=== PATIENT | female | born 1995 | race African-American/Black ===

== ENCOUNTER 2019-03-23 05:03 | Inpatient (IN) ==
[2019-03-23] MEDS ORDERED: BUTORPHANOL 2 MG/ML VIAL IV PRN (05:15)
[2019-03-23] MEDS ORDERED: ONDANSETRON 4 MG/2 ML VIAL IV PRN (05:15)
[2019-03-23] MEDS ORDERED: OXYTOCIN/LR 20 UNIT/1,000 ML BAG IV SCH (05:30)
[2019-03-23 05:43] LABS: Basophils # 0.1 10*3/uL (0.0-0.2); Basophils % 0.5 % (0.0-0.8); Immature Granulocytes % 0.9 %
[2019-03-23] MEDS: LACTATED RINGERS 1,000 ML IV SCH ×2 (05:45→09:16)
[2019-03-23 05:49] LABS: Eosinophils # 0.3 10*3/uL (0.0-0.87); Eosinophils % 2.6 % (0.00-10.9); Hematocrit 34.7 VOL% (35.7-47.0); Hemoglobin 10.7 GM/DL (12.0-16.0); Immature Granulocytes Absolute 0.11 #; Lymphocytes # 2.7 10*3/uL (1.4-4.0); Mean Corpuscular HGB Conc 30.8 GM/DL (32-36); Mean Platelet Volume 8.7 FL (9.6-12.0); Monocytes % 9.3 % (1.7-12.7); Neutrophils % 65.7 % (38.7-73.9); Platelet Count 364 T/CUMM (130-400); Red Blood Count 3.99 MC/CUMM (3.8-5.5); Red Cell Distribution Width 15.7 % (9.3-17.3); White Blood Count 12.9 T/CUMM (4-12)
[2019-03-23 05:53] LABS: INR 0.9; PT Patient Result 9.8 SECS; Partial Thromboplastin Time 26.2 SECS (0-40)
[2019-03-23 06:02] LABS: Albumin 2.8 G/DL (3.4-5.0); Bilirubin,Total 0.7 MG/DL (0.2-1.0); Osmolality,Calculated 272.7 MOS/KG (273-304); Total Protein 7.2 G/DL (6.4-8.3); Uric Acid 6.5 MG/DL (2.6-6.0)
[2019-03-23 06:09] LABS: Anisocytosis 1+; Platelet Estimate Adequate
[2019-03-23] MEDS ORDERED: hydrOXYzine HCL 25 MG/1 ML VIAL IM PRN (07:54)
[2019-03-23] MEDS ORDERED: CITRIC ACID/SODIUM CITRATE 30 ML UDCUP PO ONE (07:54)
[2019-03-23] MEDS ORDERED: diphenhydrAMINE 50 MG/1 ML VIAL IV PRN ×2 (07:54)
[2019-03-23] MEDS ORDERED: FAMOTIDINE 20 MG/2 ML VIAL IV ONE (07:54)
[2019-03-23] MEDS ORDERED: ePHEDrine 50 MG/ML AMP IV PRN (07:54)
[2019-03-23] MEDS ORDERED: NALOXONE 0.4 MG/ML VIAL IV PRN (07:54)
[2019-03-23] MEDS ORDERED: LACTATED RINGERS 1,000 ML IV ONE (07:54)
[2019-03-23] MEDS ORDERED: ONDANSETRON 4 MG/2 ML VIAL IV ONE (07:54)
[2019-03-23] MEDS ORDERED: PROMETHAZINE 25 MG/1 ML VIAL IM ONE (07:54)
[2019-03-23] MEDS ORDERED: fentaNYL 2 MCG/ROPIV 0.2% EPID 100 ML EPIDURAL SCH (08:00)
[2019-03-23 11:58] LABS: Apearance,Urine CLEAR (Clear); Bilirubin,Urine Negative (Negative); Blood, Urine Small mg/dL (Negative); Glucose,Urine (UA) Negative (Negative); Ketones,Urine Negative (Negative); Mucus,Urine Moderate /LPF (Occasional); Nitrite,Urine Negative (Negative); Protein,Urine Negative; RBC,Urine 3 /HPF (0-4); Squamous Epithelial Cell,Urine Occasional /HPF (0-10); Urine Color Yellow (Yellow); Urine Specific Gravity 1.014 (1.001-1.035); Urine Urobilinogen < 2.0 EU/DL (0.2-1.0); WBC,Urine <1 /HPF (0-6)
[2019-03-23] MEDS ORDERED: miSOPROStol 200 MCG TABLET ONE (13:24)
[2019-03-23] MEDS ORDERED: LIDOCAINE 1% 50 ML VIAL ONE (13:24)
[2019-03-23] MEDS ORDERED: CARBOPROST TROMETHAMINE 250 MCG/ML AMP IM ONE (13:24)
[2019-03-23] MEDS ORDERED: RHO(D) IMMUNE GLOBULIN 300 MCG SYRINGE IM ONE (14:33)
[2019-03-23] MEDS ORDERED: DIPH/TET/ACEL PERT BOOSTER VACCINE 0.5 ML VIAL IM ONE (14:33)
[2019-03-23] MEDS ORDERED: LANOLIN 50% CREAM 0.3 OZ TUBE TOP PRN (14:33)
[2019-03-23] MEDS ORDERED: MEASLES/MUMPS/RUBELLA VACCINE 0.5 ML VIAL SUBCUT ONE (14:33)
[2019-03-23] MEDS ORDERED: BENZOCAINE 20%/MENTHOL 0.5% SPRAY 56 GM CAN TOP PRN (14:33)
[2019-03-23] MEDS ORDERED: HYDROCORTISONE 2.5% RECTAL CREAM 30 GM TUBE TOP PRN (14:33)
[2019-03-23] MEDS ORDERED: ACETAMINOPHEN 325 MG TABLET PO PRN (14:33)
[2019-03-23] MEDS ORDERED: OXYTOCIN/LR 20 UNIT/1,000 ML BAG IV ONE (14:33)
[2019-03-23] MEDS ORDERED: WITCH HAZEL PADS 100/JAR TOP PRN (14:33)
[2019-03-23] MEDS ORDERED: BISACODYL 10 MG SUPP RECTAL PRN (14:33)
[2019-03-23] MEDS ORDERED: oxyCODONE/ACETAMINOPHEN 5-325 MG TABLET PO PRN (14:33)
[2019-03-23] MEDS: IBUPROFEN 800 MG TABLET PO PRN (17:09)
[2019-03-23] MEDS: FERROUS SULFATE 325 MG TABLET PO SCH ×2 (19:05→20:53)
[2019-03-23] MEDS: DOCUSATE SODIUM 100 MG CAPSULE PO SCH (20:53)
[2019-03-23] MEDS: LABETALOL 200 MG TABLET PO SCH (20:53)
[2019-03-24 05:12] LABS: Basophils % 0.3 % (0.0-0.8); Eosinophils # 0.2 10*3/uL (0.0-0.87); Eosinophils % 1.6 % (0.00-10.9); Hematocrit 29.6 VOL% (35.7-47.0); Hemoglobin 9.1 GM/DL (12.0-16.0); Immature Granulocytes % 0.6 %; Immature Granulocytes Absolute 0.07 #; Lymphocytes % 17.4 % (21.3-54.2); Mean Corpuscular HGB Conc 30.7 GM/DL (32-36); Mean Platelet Volume 9.1 FL (9.6-12.0); Monocytes % 10.1 % (1.7-12.7); Platelet Count 292 T/CUMM (130-400); Red Blood Count 3.44 MC/CUMM (3.8-5.5); Red Cell Distribution Width 15.7 % (9.3-17.3); White Blood Count 11.7 T/CUMM (4-12)
[2019-03-24] MEDS ORDERED: MULTIVITAMIN (PRENATAL) TABLET PO SCH (09:00)
[2019-03-24] MEDS: DOCUSATE SODIUM 100 MG CAPSULE PO SCH ×2 (09:09→20:29)
[2019-03-24] MEDS: IBUPROFEN 800 MG TABLET PO PRN (09:09)
[2019-03-24] MEDS: FERROUS SULFATE 325 MG TABLET PO SCH ×3 (09:09→20:29)
[2019-03-24] MEDS: LABETALOL 200 MG TABLET PO SCH ×2 (09:09→20:29)
[2019-03-24] MEDS: MULTIVITAMIN (PRENATAL) TABLET PO SCH (09:09)
[2019-03-24] MEDS: oxyCODONE/ACETAMINOPHEN 5-325 MG TABLET PO PRN (17:30)
[2019-03-25 07:29] VITALS: BP 116/71
[2019-03-25] MEDS: FERROUS SULFATE 325 MG TABLET PO SCH (08:24)
[2019-03-25] MEDS: MULTIVITAMIN (PRENATAL) TABLET PO SCH (08:24)
[2019-03-25] MEDS: DOCUSATE SODIUM 100 MG CAPSULE PO SCH (08:24)
[2019-03-25] MEDS: LABETALOL 200 MG TABLET PO SCH (08:24)
[2019-03-25] MEDS: oxyCODONE/ACETAMINOPHEN 5-325 MG TABLET PO PRN (08:29)
[2019-03-25] MEDS ORDERED: MEASLES/MUMPS/RUBELLA VACCINE 0.5 ML VIAL SUBCUT ONE (11:48)
== END 2019-03-25 14:10 | disposition home or self-care (01) | DRG 560 ==
LOC: N.LDOUT 05:03 → N.LD 05:06 → N.OB 18:15
PROVIDERS: ADMIT Obstetrics & Gynecology; ATTEND Obstetrics & Gynecology

== ENCOUNTER 2022-06-26 00:09 | Inpatient (IN) ==
[2022-06-26] MEDS ORDERED: ACETAMINOPHEN 500 MG TABLET PO PRN (00:44)
[2022-06-26] MEDS ORDERED: BUTORPHANOL 1 MG/ML VIAL IV PRN (00:44)
[2022-06-26] MEDS ORDERED: LACTATED RINGERS 250 ML IV ONE (00:44)
[2022-06-26] MEDS ORDERED: LACTATED RINGERS 500 ML IV PRN (00:44)
[2022-06-26] MEDS ORDERED: OXYTOCIN/LR 20 UNIT/1,000 ML BAG IV ONE ×3 (00:44→13:08)
[2022-06-26] MEDS ORDERED: CARBOPROST TROMETHAMINE 250 MCG/ML AMP IM PRN (00:44)
[2022-06-26] MEDS ORDERED: TRANEXAMIC ACID 1,000 MG in SODIUM CHLORIDE 0.9% 100 ML IV PRN (00:44)
[2022-06-26] MEDS ORDERED: MEPERIDINE 50 MG/1 ML VIAL IV PRN ×2 (00:44→00:54)
[2022-06-26] MEDS ORDERED: METHYLERGONOVINE 0.2 MG/1 ML AMP IM PRN (00:44)
[2022-06-26] MEDS ORDERED: ONDANSETRON 4 MG/2 ML VIAL IV PRN (00:44)
[2022-06-26] MEDS ORDERED: miSOPROStoL 200 MCG TABLET RECTAL PRN (00:44)
[2022-06-26] MEDS ORDERED: BUTORPHANOL 2 MG/ML VIAL IV PRN (00:44)
[2022-06-26] MEDS ORDERED: LACTATED RINGERS 1,000 ML IV SCH ×3 (01:00→08:30)
[2022-06-26 01:53] LABS: Basophils # 0.1 10*3/uL (0.0-0.2); Basophils % 0.4 % (0.0-0.8); Eosinophils # 0.2 10*3/uL (0.0-0.87); Eosinophils % 2.1 % (0.00-10.9); Hematocrit 30.3 VOL% (35.7-47.0); Hemoglobin 9.3 GM/DL (12.0-16.0); Immature Granulocytes % 1.2 %; Immature Granulocytes Absolute 0.14 #; Lymphocytes # 1.8 10*3/uL (1.4-4.0); Lymphocytes % 15.7 % (21.3-54.2); Mean Corpuscular HGB Conc 30.7 GM/DL (32-36); Mean Corpuscular Volume 84.2 FL (87-102); Mean Platelet Volume 9.3 FL (9.6-12.0); Monocytes # 1.1 10*3/uL (0.11-0.8); Monocytes % 9.4 % (1.7-12.7); NRBC # 0.02 10*3/uL; Neutrophils % 71.2 % (38.7-73.9); Platelet Count 325 T/CUMM (130-400); White Blood Count 11.6 T/CUMM (4-12)
[2022-06-26 03:25] LABS: Alanine Aminotransferase 10 U/L (13-56); Albumin 2.5 G/DL (3.4-5.0); Alkaline Phosphatase 123 U/L (45-117); Aspartate Amino Transferase 8 U/L (0-37); Bilirubin,Total < 0.39 MG/DL (0.20-1.00); Blood Urea Nitrogen 7 MG/DL (7-18); Calcium 8.5 MG/DL (8.5-10.1); Carbon Dioxide 21 MMOL/L (21-32); Chloride 111 MMOL/L (98-107); Glucose 109 MG/DL (74-106); Osmolality,Calculated 271.8 MOS/KG (273-304); Potassium 3.7 MMOL/L (3.5-5.1); Sodium 137 MMOL/L (136-145); Total Protein 6.6 G/DL (6.4-8.2)
[2022-06-26] MEDS ORDERED: diphenhydrAMINE 50 MG/1 ML VIAL IV PRN ×2 (08:13)
[2022-06-26] MEDS ORDERED: NALOXONE 0.4 MG/ML VIAL IV PRN (08:13)
[2022-06-26] MEDS ORDERED: CITRIC ACID/SODIUM CITRATE 30 ML UDCUP PO ONE (08:13)
[2022-06-26] MEDS ORDERED: FAMOTIDINE 20 MG/2 ML VIAL IV ONE (08:13)
[2022-06-26] MEDS ORDERED: LACTATED RINGERS 1,000 ML IV ONE (08:13)
[2022-06-26] MEDS ORDERED: hydrOXYzine HCL 25 MG/1 ML VIAL IM PRN (08:13)
[2022-06-26] MEDS ORDERED: ePHEDrine 50 MG/ML VIAL IV PRN (08:13)
[2022-06-26] MEDS ORDERED: PROMETHAZINE 25 MG/1 ML VIAL IM ONE (08:13)
[2022-06-26] MEDS ORDERED: fentaNYL 2 MCG/ROPIV 0.2% EPID 100 ML EPIDURAL SCH (08:30)
[2022-06-26] MEDS ORDERED: LIDOCAINE 2% 5 ML VIAL ONE (09:52)
[2022-06-26] MEDS ORDERED: fentaNYL 100 MCG/2 ML VIAL ONE (10:49)
[2022-06-26] MEDS ORDERED: METHYLERGONOVINE 0.2 MG/1 ML AMP ONE (11:09)
[2022-06-26] MEDS ORDERED: miSOPROStoL 200 MCG TABLET ONE (11:09)
[2022-06-26] MEDS ORDERED: CARBOPROST TROMETHAMINE 250 MCG/ML AMP IM ONE (11:10)
[2022-06-26 11:29] LABS: Cord Venous Blood HCO3 22.5 MMOL/L
[2022-06-26] MEDS ORDERED: LANOLIN 50% CREAM 0.3 OZ TUBE TOP PRN (13:08)
[2022-06-26] MEDS ORDERED: oxyCODONE/ACETAMINOPHEN 5-325 MG TABLET PO PRN (13:08)
[2022-06-26] MEDS ORDERED: MEASLES/MUMPS/RUBELLA VACCINE 0.5 ML VIAL SUBCUT ONE (13:08)
[2022-06-26] MEDS ORDERED: BENZOCAINE 20%/MENTHOL 0.5% SPRAY 56 GM CAN TOP PRN (13:08)
[2022-06-26] MEDS ORDERED: BISACODYL 10 MG SUPP RECTAL PRN (13:08)
[2022-06-26] MEDS ORDERED: DIPH/TET/ACEL PERT BOOSTER VACCINE 0.5 ML VIAL IM ONE (13:08)
[2022-06-26] MEDS ORDERED: HYDROCORTISONE 2.5% RECTAL CREAM 30 GM TUBE TOP PRN (13:08)
[2022-06-26] MEDS ORDERED: ACETAMINOPHEN 325 MG TABLET PO PRN (13:08)
[2022-06-26] MEDS ORDERED: WITCH HAZEL PADS 100/JAR TOP PRN (13:08)
[2022-06-26] MEDS ORDERED: RHO(D) IMMUNE GLOBULIN 300 MCG SYRINGE IM ONE (13:08)
[2022-06-26] MEDS: oxyCODONE/ACETAMINOPHEN 5-325 MG TABLET PO PRN ×2 (13:18→20:13)
[2022-06-26] MEDS: IBUPROFEN 800 MG TABLET PO PRN (20:13)
[2022-06-26] MEDS: DOCUSATE SODIUM 100 MG CAPSULE PO SCH (20:14)
[2022-06-27 06:31] LABS: Basophils % 0.3 % (0.0-0.8); Eosinophils # 0.3 10*3/uL (0.0-0.87); Eosinophils % 2.5 % (0.00-10.9); Hematocrit 28.7 VOL% (35.7-47.0); Hemoglobin 8.7 GM/DL (12.0-16.0); Immature Granulocytes % 0.9 %; Immature Granulocytes Absolute 0.11 #; Lymphocytes % 16.9 % (21.3-54.2); Mean Corpuscular HGB Conc 30.3 GM/DL (32-36); Mean Corpuscular Volume 85.2 FL (87-102); Mean Platelet Volume 9.5 FL (9.6-12.0); Monocytes # 1.3 10*3/uL (0.11-0.8); Monocytes % 11.3 % (1.7-12.7); NRBC # 0.02 10*3/uL; Neutrophils % 68.1 % (38.7-73.9); Platelet Count 302 T/CUMM (130-400); Red Blood Count 3.37 MC/CUMM (3.8-5.5); Red Cell Distribution Width 16.9 % (9.3-17.3); White Blood Count 11.8 T/CUMM (4-12)
[2022-06-27] MEDS: DOCUSATE SODIUM 100 MG CAPSULE PO SCH ×2 (08:52→20:11)
[2022-06-27] MEDS: IBUPROFEN 800 MG TABLET PO PRN ×2 (08:53→21:19)
[2022-06-27] MEDS ORDERED: ALUMINUM/MAGNES/SIMETH MAX STR 30 ML UDCUP PO PRN (17:47)
[2022-06-27] MEDS: oxyCODONE/ACETAMINOPHEN 5-325 MG TABLET PO PRN (21:19)
[2022-06-28 08:50] VITALS: BP 132/60
[2022-06-28] MEDS ORDERED: FERROUS SULFATE 325 MG TABLET PO SCH (09:00)
[2022-06-28] MEDS: DOCUSATE SODIUM 100 MG CAPSULE PO SCH (09:24)
[2022-06-28] MEDS: IBUPROFEN 800 MG TABLET PO PRN (12:05)
== END 2022-06-28 13:40 | disposition home or self-care (01) | DRG 807 ==
LOC: N.LD 00:09 → N.OB 14:12
PROVIDERS: ADMIT Obstetrics & Gynecology; ATTEND Obstetrics & Gynecology